=== PATIENT | male | born 1990 | race Caucasian/White ===

== ENCOUNTER 2017-05-17 22:46 | Emergency (ER) | payer OTHER ==
[2017-05-17 23:06] VITALS: BP 139/86; PULSE 86; RESP 17; TEMP 98.6; O2SAT 99
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
== END 2017-05-17 23:57 | disposition left against medical advice (07) ==
LOC: ED 22:46
DX: S16.1XXA Strain of muscle, fascia and tendon at neck level, initial encounter (principal); V43.52XA Car driver injured in collision with other type car in traffic accident, initial encounter; M25.562 Pain in left knee; F17.210 Nicotine dependence, cigarettes, uncomplicated

== ENCOUNTER 2017-05-18 23:08 | Emergency (ER) | payer OTHER ==
[2017-05-18 23:51] VITALS: BMI 38.5
[2017-05-19 00:04] VITALS: BP 162/95; PULSE 105; RESP 18; TEMP 99; O2SAT 98
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
--- NOTE | 2017-05-19 02:42 | CT ---
EXAM: CT Head Without Intravenous Contrast CLINICAL HISTORY: 27 years old, male; Signs and symptoms; Dizziness; Additional info: Dizzy TECHNIQUE: Axial computed tomography images of the head/brain without intravenous contrast. All CT scans at this facility use one or more dose reduction techniques, viz.: automated exposure control; ma/kV adjustment per patient size (including targeted exams where dose is matched to indication; i.e. head); or iterative reconstruction technique. 370 images are submitted. Coronal and sagittal reformatted images were created and reviewed. Axial reformatted images were created and reviewed. COMPARISON: No relevant prior studies available. FINDINGS: Brain: There is asymmetric left temporal lobe volume loss with prominent extra-axial space seen on image 9 series 2 and on image 80 series 602. These findings can be secondary to congenital etiology versus trauma versus prior infarct. Correlation with patient's clinical history is recommended. There is prominence of sulci and cisterns for patient's age. No hemorrhage. No significant white matter disease. Ventricles: Unremarkable. No ventriculomegaly. Bones/joints: Unremarkable. No acute fracture. Soft tissues: Unremarkable. Sinuses: Unremarkable. No acute sinusitis. Mastoid air cells: Unremarkable. No mastoid effusion. Orbits: The globe and lens are intact. IMPRESSION: No evidence of an acute intracranial hemorrhage, midline shift or mass effect is identified.
--- NOTE | 2017-05-19 03:13 | CT ---
EXAM: CT Cervical Spine Without Intravenous Contrast CLINICAL HISTORY: 27 years old, male; Pain; Neck pain TECHNIQUE: Axial computed tomography images of the cervical spine without intravenous contrast. All CT scans at this facility use one or more dose reduction techniques, viz.: automated exposure control; ma/kV adjustment per patient size (including targeted exams where dose is matched to indication; i.e. head); or iterative reconstruction technique. 410 images are submitted. Coronal and sagittal reformatted images were created and reviewed. COMPARISON: No relevant prior studies available. FINDINGS: Vertebrae: Unremarkable. No acute fracture. Discs/spinal canal/neural foramina: No acute findings. No spinal canal stenosis. Soft tissues: Unremarkable. Lymph nodes: Bilateral cervical chain lymph nodes. Subcentimeter submental and submandibular lymph nodes. Lung apices: Unremarkable. IMPRESSION: There is no acute fracture of cervical spine.
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
== END 2017-05-19 03:54 | disposition home or self-care (01) ==
LOC: ED 23:08
DX: S16.1XXA Strain of muscle, fascia and tendon at neck level, initial encounter (principal); S86.912A Strain of unspecified muscle(s) and tendon(s) at lower leg level, left leg, initial encounter; S86.911A Strain of unspecified muscle(s) and tendon(s) at lower leg level, right leg, initial encounter; V43.52XA Car driver injured in collision with other type car in traffic accident, initial encounter; F17.210 Nicotine dependence, cigarettes, uncomplicated